=== PATIENT | female | born 1985 | race Caucasian/White ===

== ENCOUNTER 2018-09-15 22:07 | Emergency (ER) | payer SELFPAY ==
[2018-09-15] MEDS ORDERED: Ibuprofen 800 MG TAB ONE (22:23)
[2018-09-15] MEDS ORDERED: Ondansetron ODT 4 MG TAB ONE (22:23)
== END 2018-09-15 22:26 | disposition home or self-care (01) ==
LOC: BURERS 22:07
DX: J11.1 Influenza due to unidentified influenza virus with other respiratory manifestations (principal); E03.9 Hypothyroidism, unspecified
CPT/HCPCS: 99283; Q0162

== ENCOUNTER 2019-02-12 00:16 | Emergency (ER) | payer OTHER, SELFPAY ==
[2019-02-12] MEDS ORDERED: methylPREDNISolone Sod Succ/PF 125 MG/2 ML VIAL ONE (00:37)
== END 2019-02-12 00:44 | disposition home or self-care (01) ==
LOC: BURERS 00:16
DX: L50.0 Allergic urticaria (principal); E03.9 Hypothyroidism, unspecified
CPT/HCPCS: 96372; 99282; J2930

== ENCOUNTER 2019-05-26 18:09 | Emergency (ER) | payer OTHER ==
--- NOTE | 2019-05-26 19:22 | RAD ---
XR Chest Pa Lat STANDARD HISTORY: Productive cough COMPARISON: None FINDINGS: The heart size is normal. The lungs are well expanded without focal areas of consolidation, pneumothorax or pleural effusions. IMPRESSION: No radiographic evidence of acute cardiopulmonary process.
== END 2019-05-26 19:41 | disposition home or self-care (01) ==
LOC: BURERS 18:09
DX: J06.9 Acute upper respiratory infection, unspecified (principal); E03.9 Hypothyroidism, unspecified
CPT/HCPCS: 71046; J7620

== ENCOUNTER 2020-01-01 20:20 | Emergency (ER) | payer SELFPAY ==
[2020-01-01 21:07] LABS: INR-International Normal Ratio 0.9; Prothrombin Time 12.1 sec (12.0-14.7)
[2020-01-01 21:08] LABS: #Basophils 0.2 thou/uL (0.0-0.2); #Eosinphils 0.2 thou/uL (0.0-0.7); #Lymphocytes 4.9 thou/uL (1.20-3.40); %Basophils 1.1 % (0.0-1.0); %Eosinophils 1.1 % (0.0-10.0); %Monocytes 6.1 % (0.0-10.0); %Neutrophils 61.7 % (42.0-75.0); Hemoglobin 12.4 g/dL (12.0-16.0); Mean Corpuscular HGB CONC 31.3 g/dL (32.0-36.0); Mean Corpuscular Hemoglobin 26.1 pg (27.0-31.0); Mean Corpuscular Volume 83.3 fL (78.0-98.0); Mean Platelet Volume 6.7 fL (7.4-10.4); Platelet Count 403 thou/uL (130-400); RBC Distribution Width 13.6 % (11.5-14.5); Red Blood Cell (RBC) Count 4.75 mill/uL (4.20-5.40); White Blood Cell (WBC) Count 16.3 thou/uL (4.8-10.8)
[2020-01-01 21:16] LABS: ALT (SGPT) 38 U/L (8-55); AST (SGOT) 29 U/L (5-34); Albumin 4.4 g/dL (3.5-5.0); Alkaline Phosphatase 74 U/L (40-110); Anion Gap 14 mmol/L (10-20); BHCG - Serum Negative (NEGATIVE); BUN (Urea Nitrogen) 10 mg/dL (7.0-18.7); Bilirubin, Total 0.5 mg/dL (0.2-1.2); Calc. Creatinine Clearance 0 mL/min (70-130); Calcium 8.8 mg/dL (7.8-10.44); Carbon Dioxide 24 mmol/L (22-29); Chloride 105 mmol/L (98-107); Estimated GFR-MDRD 84; Globulin 3.4 g/dL (2.4-3.5); Glucose 119 mg/dL (70-105); Potassium 3.1 mmol/L (3.5-5.1); Pregs Control Background? CLEAR/WHITE (CLR/WHITE); Pregs Control Bar Appear? YES (CONTROL BAR); Protein, Total 7.8 g/dL (6.0-8.3); Sodium 140 mmol/L (136-145)
[2020-01-01] MEDS ORDERED: Potassium Chloride 20 MEQ TAB ONE (21:43)
== END 2020-01-01 21:53 | disposition home or self-care (01) ==
LOC: BURERS 20:20
DX: N92.1 Excessive and frequent menstruation with irregular cycle (principal); E03.9 Hypothyroidism, unspecified; Z79.899 Other long term (current) drug therapy
CPT/HCPCS: 80053; 84703; 85025; 85610; 99284

== ENCOUNTER 2021-09-05 17:58 | Emergency (ER) | payer BC, SELFPAY ==
[2021-09-05] MEDS ORDERED: Clindamycin 150 MG CAP ONE ×2 (18:15)
== END 2021-09-05 18:19 | disposition home or self-care (01) ==
LOC: BURERS 17:58
DX: L02.412 Cutaneous abscess of left axilla (principal); L02.411 Cutaneous abscess of right axilla; E03.9 Hypothyroidism, unspecified
CPT/HCPCS: 99283

== ENCOUNTER 2025-04-04 17:54 | Emergency (ER) | payer BC | END 2025-04-04 18:10 | disposition home or self-care (01) | LOC: BURERS 17:54 | DX: R21 Rash and other nonspecific skin eruption (principal); E11.9 Type 2 diabetes mellitus without complications; E03.9 Hypothyroidism, unspecified; Z79.899 Other long term (current) drug therapy | CPT/HCPCS: 99282 ==